=== PATIENT | male | born 1940 | race Caucasian/White ===

== ENCOUNTER 2016-11-08 07:07 | Day surgery (SDC) | payer MEDICARE, BC ==
[~2016-11-08] VITALS: Ht 162.6 cm; Wt 65.8 kg
[~2016-11-08 07:07] MED LIST: ALLO100T PO; ATOR1TAB19 PO; CALC1CAP PO; METO-346 PO; PANT40TA2 PO; QUET1TAB7 PO; TRAD5TAB PO
[2016-11-08] MEDS ORDERED: NS 1,000 ML IV SCH ×2 (07:15→11:15)
[2016-11-08] MEDS ORDERED: ASPI1TAB PO (07:43)
[2016-11-08] MEDS ORDERED: NS 1,000 ML IV ONE (08:00)
[2016-11-08] MEDS ORDERED: LIDOCAINE 1% SDV INJ 30 ML VIAL As Ordered ONE (08:43)
[2016-11-08] MEDS ORDERED: BUPIVACAINE HCL 0.5% 30 ML VIAL As Ordered ONE (08:43)
[2016-11-08] MEDS ORDERED: PROPOFOL 500 MG/50 ML VIAL As Ordered ONE (09:47)
[2016-11-08] MEDS ORDERED: fentaNYL 100 MCG/2 ML INJECTION (J3010) As Ordered ONE (09:47)
[2016-11-08] MEDS ORDERED: MIDAZOLAM INJ 2 MG/2 ML VIAL (J2250) As Ordered ONE (09:47)
[2016-11-08] MEDS ORDERED: ePHEDrine SULFATE 25 MG/5 ML(5MG/ML) SYRINGE As Ordered ONE (09:47)
[2016-11-08] MEDS ORDERED: PHENYLephrine HCL 500 MCG/5 ML (100MCG/ML) SYRINGE (J2370) As Ordered ONE (09:47)
[2016-11-08] MEDS ORDERED: HEPARIN SOD (PORCINE) 5000 UNITS/ML VIAL As Ordered ONE ×2 (10:11→10:40)
[2016-11-08] MEDS ORDERED: ONDANSETRON 4MG/2ML VIAL (J2405) IV PRN (11:15)
[2016-11-08] MEDS ORDERED: PERCOCET 5MG/325MG TAB PO PRN (11:15)
[2016-11-08] MEDS ORDERED: PERCOCET 5MG/325MG TAB As Ordered ONE (11:15)
[2016-11-08 11:50] VITALS: BP 165/72
--- NOTE | 2016-11-10 12:01 | ROOPDOC ---
[facility] Report Of Operation Report of Operation DATE OF PROCEDURE: 11/08/16 PREOPERATIVE DIAGNOSES: End-stage renal disease. POSTOPERATIVE DIAGNOSES: End-stage renal disease. PROCEDURE: Left brachial artery to brachial vein looped forearm arterial venous graft insertion. SURGEON: Dr. Andrea Uribe MD BASKETBALL COMMENTATOR: None INDICATION: Patient is a 76-year-old male with end-stage renal disease who currently dialyzes through 2 separate catheters inserted into the right internal jugular vein. Patient was evaluated and noted to have poor cephalic vein in the wrist and upper arm region. Patient will undergo exploration of the cephalic vein in the wrist and antecubital fossa region with possible arterial venous fistula formation or possible arteriovenous graft insertion. Risks, benefits and alternative treatment options were discussed with the patient. Benefits included but were not limited to presence of a functioning arteriovenous graft allowing removal of the tunnelled central venous catheter currently being used for hemodialysis access. Alternative treatment options included but were not limited to no intervention. Risks included but were not limited to infection, bleeding, failure of arterial venous access to maintain patency with thrombosis, failure of arterial venous access to function appropriately requiring secondary intervention, steal syndrome, possible need for further open surgical intervention, cerebrovascular accident, myocardial infarction, pulmonary embolus, DVT, loss of limb, loss of life and poor outcome. Patient's questions were answered. Patient voices understanding of these risks, benefits and alternative treatment options. The patient accepts these risks and consents to proceed with a left arm arteriovenous fistula creation possible arteriovenous graft formation. ANESTHESIA: Local Mac. ESTIMATED BLOOD LOSS: Approximately 25 mL. IV FLUIDS: 200 cc of crystalloid HEPARIN: 6000 units PROTAMINE: None COMPLICATIONS: None. DRAINS: None SPECIMENS: None IMPLANTS: 6 mm Accuseal PTFE graft from the left brachial artery to the left brachial vein. The arterial limb of the graft is lateral and the venous limb of the graft is medial. PROCEDURE: Patient was taken to the operating room, placed supine on the operating room table and prepped and draped in a standard surgical fashion. A time out was then completed with myself and all the staff in the room with confirmation of the correct procedure, patient, and laterality. A tourniquet was applied to the left upper extremity. There was cephalic vein at the wrist which was easily visible to the mid forearm but at this point the cephalic vein was unable to be identified into the upper forearm and upper arm. There was no cephalic vein identified at the antecubital fossa with a tourniquet and place. The tourniquet remained in place. The skin overlying the antecubital fossa in the left upper extremity was then anesthetized with 1% lidocaine mixed with 0.5 % Marcaine. The incision was then made transversely at the antecubital fossa. The cephalic vein at the antecubital fossa was identified and noted to be sclerotic and thrombosed. There was a good brachial vein noted upon dissection of the brachial artery. The brachial vein was then dissected free and encircled proximally and distally with a vessel loop. The brachial artery was then sharply dissected free and encircled with a vessel loops. A 6 mm Accuseal PTFE graft was then tunneled to create a looped graft in the forearm on the left upper extremity. Prior to clamping the brachial l artery the patient received heparin for systemic anti-coagulation. The graft was then anastomosed to the brachial vein in an end to side fashion using 6-0 Prolene suture in a running continuous fashion.. The graft was then flushed after which the arterial limb was anastomosed to the brachial artery in an end to side fashion using 6-0 Prolene suture. Hemostasis was obtained and the incision was closed using 3-0 Monocryl suture in a running subcuticular fashion to approximate the skin. All instrument, sponge and needle counts were correct at the end of the case. There was good flow noted in the arterial venous graft. The left hand was well perfused after creation of the looped forearm left brachial artery to left brachial vein arteriovenous graft. Dr. Uribe was present for and directed the entire case. There were no complications. Patient was transferred to the recovery room awake, alert, extubated and in stable condition. There were 2+ radial and ulnar pulses in the left upper extremity at the completion of the graft insertion. Kaleb Uribe MD Nov 10, 2016 12:01
== END 2016-11-08 12:00 | disposition home or self-care (01) ==
LOC: M SDC 07:07
PROVIDERS: ATTEND Surgery Vascular Surgery
DX: N18.6 End stage renal disease (principal); I25.2 Old myocardial infarction; I12.0 Hypertensive chronic kidney disease with stage 5 chronic kidney disease or end stage renal disease; E78.00 Pure hypercholesterolemia, unspecified; E11.9 Type 2 diabetes mellitus without complications; M10.9 Gout, unspecified; F03.90 Unspecified dementia, unspecified severity, without behavioral disturbance, psychotic disturbance, mood disturbance, and anxiety; G47.30 Sleep apnea, unspecified; F41.9 Anxiety disorder, unspecified; F32.9 Major depressive disorder, single episode, unspecified; Z79.899 Other long term (current) drug therapy; Z85.038 Personal history of other malignant neoplasm of large intestine; Z92.21 Personal history of antineoplastic chemotherapy; Z92.3 Personal history of irradiation; Z96.1 Presence of intraocular lens; Z99.2 Dependence on renal dialysis
CPT/HCPCS: 36415; 36830; 84132; C1768; J2250; J2370; J3010

== ENCOUNTER → 2016-11-25 | Outpatient (CLI) | payer MEDICARE, BC ==
[~2016-11-25] MED LIST changes: +ASPI1TAB PO; +ISOVUE-300 61% 50ML VIAL (Q9967) As Ordered ONE; +MIDAZOLAM INJ 2 MG/2 ML VIAL (J2250) As Ordered ONE; +fentaNYL 100 MCG/2 ML INJECTION (J3010) As Ordered ONE
--- NOTE | 2016-11-26 11:16 | REPKIM ---
DATE OF PROCEDURE: 11/25/2016 PREPROCEDURE DIAGNOSES: Endstage renal disease, dysfunctional left looped forearm arteriovenous graft from the left brachial artery to the left brachial vein. POSTPROCEDURE DIAGNOSES: Endstage renal disease, dysfunctional left looped forearm arteriovenous graft from the left brachial artery to the left brachial vein. PROCEDURE: Left looped forearm arteriovenous graft fistulogram. Retrograde left brachial artery angiogram. Left branchial vein angioplasty with 6 x 40 mm balloon. Left brachial artery to brachial vein arteriovenous graft angioplasty with 6 x 40 mm balloon. SURGEON: Dr. Iqra Uribe. HEAD MEN'S GOLF COACH: Vilma Nichols. ANESTHESIA: Local with 2 mL of 2% lidocaine. FLUORO TIME: 0.6 minutes. CONTRAST: 3 mL heparin. COMPLICATION: None. DRAINS: None. SPECIMENS: None. IMPLANTS: None. INDICATION: Patient is as 76-year-old male with endstage renal disease who dialyzes through two right internal jugular vein catheters and underwent creation of a right brachial artery to brachial vein looped forearm arteriovenous graft, which is now pulsatile and there is concern for venous outflow obstruction with loss of graft. The patient will undergo a fistulogram with possible angioplasty and/or stent. Risks, benefits and alternative treatment options were discussed with the patient. Benefits including but were not limited to a functioning arteriovenous graft with subsequent removal of the catheters in his right internal jugular vein. Alternative treatment options included but were not limited to no intervention. Risks included but here not limited to infection, bleeding, steel syndrome and possible need for open surgical intervention, loss of arteriovenous access, cerebral vascular accident, myocardial infarction, pulmonary embolus, deep venous thrombosis, loss of limb, loss of life and poor outcome. The patient's questions were answered. The patient voices understanding of these risks, benefits and alternative treatment options. The patient agrees to proceed with a left looped forearm arteriovenous graft fistulogram and accepts the associated risks. DESCRIPTION OF PROCEDURE: The patient was taken to the angiography suite and placed supine on the angiography room table and the left upper extremity was then prepped and draped in a standard surgical fashion A time-out was then conducted by myself and all the team members within the room confirming the correct patient, procedure and laterality. The left looped forearm arteriovenous graft was then cannulated with a micropuncture needle after anesthetizing the overlying skin with 2% lidocaine. The micropuncture wire was advanced through the micropuncture needle, which was upsized to a micropuncture sheath. A fistulogram was performed through the sheath showing the graft to be widely patent to the branchial vein. There was an area of stenosis in the brachial vein at the anastomosis which was approximately 70%. The remainder of the brachial vein was patent into the central venous system with no central venous stenosis noted. The brachial vein and graft anastomosis was then angioplastied with a 6 x 40 mm balloon. During inflation of the balloon, a retrograde brachial artery angiogram was performed showing the remainder of the graft to be patent and the brachial artery with good flow in the brachial artery proximal distal to the artery to graft anastomosis. A completion fistulogram was performed showing resolution of the stenosis with good flow through the graft into the brachial vein and centrally. Catheters and wires were removed. The was removed and manual compression applied to the puncture site for hemostasis. Dressings were then applied. The patient tolerated the procedure well. All instruments, sponge and needle counts were correct at the end of the case. There were no complications. Dr. Uribe was present for and directed the entire case. The patient was transferred to the holding area and subsequently discharged in stable condition. There was a good thrill in the graft at the completion of the intervention and the graft is stable for use for hemodialysis access. RADIOLOGIC SUPERVISION INTERPRETATION: The initial fistulogram showed the graft to be widely patent to the brachial vein where there was stenosis at the brachial vein to graft anastomosis, which was approximately 70%. The remainder of the brachial vein was patent into the upper arm and central venous system with no central venous stenosis or occlusion noted. The brachial vein to graft anastomosis was angioplastied with a 6 x 40 balloon during which time an retrograde brachial artery angiogram was performed showing the remainder of the graft to be patent in the brachial artery with good flow in the brachial artery proximal and distal to the graft and brachial artery anastomosis. A completion fistulogram showed resolution of the stenosis a the anastomosis with good flow through the graft into the brachial vein and centrally. CONCLUSION: The patient underwent successful angioplasty of the graft to brachial vein anastomosis with resolution of the stenosis and presybeterian of a thrill to the arteriovenous graft. The graft is stable for use for dialysis access.
== END | disposition home or self-care (01) ==
LOC: M IRPRO 12:50
PROVIDERS: ATTEND Surgery Vascular Surgery
DX: T82.858A Stenosis of other vascular prosthetic devices, implants and grafts, initial encounter (principal); N18.6 End stage renal disease
CPT/HCPCS: 36902; C1725; C1769; C1894; Q9967

== ENCOUNTER → 2016-12-06 | Outpatient (CLI) | payer MEDICARE, BC ==
[~2016-12-06] MED LIST changes: +ALTEPLASE 2 MG/2 ML VIAL (J2997 PER 1MG) As Ordered ONE; +HEPARIN 1,000 UNITS/ML 10ML VIAL (FOR RADIOLOGY& DIALYSIS ONLY) As Ordered ONE; +LIDOCAINE 2% MDV 20 ML VIAL As Ordered ONE
--- NOTE | 2016-12-18 12:47 | REPKIM ---
DATE OF PROCEDURE: 12/06/2016 PREPROCEDURE DIAGNOSES: Endstage renal disease. Thrombosed left looped forearm arteriovenous graft. POSTPROCEDURE DIAGNOSES: Endstage renal disease. Thrombosed left looped forearm arteriovenous graft. PROCEDURE: Installation of thrombolytic with 6 mm of TPA and 5000 units of heparin into thrombosed left looped forearm brachial artery to brachial vein arteriovenous graft. Left looped forearm arteriovenous fistulogram. Selective left brachial artery catheter placement with angiogram and runoff. Placement of two sheaths with two cannulations of the looped forearm left brachial artery to brachial vein arteriovenous graft. Left brachial artery angioplasty with 6 x 100 balloon, left brachial artery to arteriovenous graft anastomosis. Angioplasty with 6 x 100 balloon left looped forearm arteriovenous graft angioplasty with 7 x 150 and 8 x 200 balloon, left brachial vein angioplasty with 7 x 150 and 8 x 200 balloon, left axillary vein angioplasty with 7 x 150 and 8 x 200 balloon, left subclavian vein angioplasty with 7 x 150 and 8 x 200 balloon. Mechanical thrombectomy with 7 and 8 mm balloons of thrombosed left brachial artery to brachial vein looped forearm arteriovenous graft. SURGEON: Dr. Iqra Uribe EMERGENCY DEPT TECH: Jaimie Ortega ANESTHESIA: Local with sedation with 2 mg of Versed, 100 mcg fentanyl and 4.5 mL of 2% lidocaine. Sedation time was from 12:15 pm to 1:15 pm with the sedation administered by myself and the cardiopulmonary monitoring performed by the RN in the room. The procedure was performed under my direct supervision and direction and I was present for the entire case. CONTRAST: 8 mL. COMPLICATIONS: None. DRAINS: None. SPECIMENS: None. IMPLANTS: None. INDICATION: The is a 76-year-old male who underwent placement of a left brachial vein arteriovenous graft, which is looped in the forearm and subsequently had thrombosis after initial use of the graft. The patient will undergo thrombolysis with possible angioplasty and/or stent. Risks, benefits and alternative treatment options were discussed with the patient. DESCRIPTION OF PROCEDURE: The graft was pre-injected with 6 mg of TPA and 5000 units of heparin through a butterfly needle after which the patient was taken to the angiography suite, placed supine, and the left upper extremity was prepped and draped in a standard surgical fashion. Two sheath were placed in the graft. Mechanical thrombectomy was performed with 7 and 8 mm balloons. Fistulogram was performed showing extensive long segment stenosis in the brachial vein, axillary vein and extending into the subclavian vein as well as the graft to brachial vein anastomosis. There was also residual thrombus at the left brachial artery to arteriovenous graft anastomosis on selected brachial artery catheter angiogram. The left brachial artery and arteriovenous graft were angioplastied with a 6 x 100 balloon, the left brachial, vein, axillary vein, subclavian vein and arteriovenous graft were angioplastied with 7 x 150 and 8 x 200 balloon with mechanical thrombectomy performed with the 7 and 8 mm balloons. There was good flow through the graft and into the brachial vein, axillary vein, subclavian vein and centrally with no residual stenosis noted on followup fistulogram. Catheters and wires were removed. The sheaths were removed and #2-0 Prolene sutures placed at the puncture sites for hemostasis. Dressing were then applied. The patient tolerated the procedure well. All instrument, sponge and needle counts were correct at the end of the case. There were no complications. Dr. Uribe was present for and directed the entire case. The patient was transferred to the holding area and subsequently discharged in stable condition. The graft is patent and stable for use for hemodialysis access. RADIOLOGIC SUPERVISION INTERPRETATION: The initial fistulogram showed the graft to have residual thrombus and the brachial vein with long-segment stenosis in the brachial vein, axillary vein extending into the subclavian with no central venous stenosis or occlusion noted. The graft underwent mechanical thrombectomy as well as chemical thrombolysis with insulation of thrombolysis with insulation of thrombolytic with 6 mg of TPA and 5000 units of heparin. The brachial artery to graft anastomosis was angioplastied with a 6 x 100 balloon. The brachial vein, axillary vein and subclavian vein were angioplastied with a 7 x 150 and 8 x 200 balloon.
== END | disposition home or self-care (01) ==
LOC: M IRPRO 09:28
PROVIDERS: ATTEND Surgery Vascular Surgery
DX: T82.868A Thrombosis due to vascular prosthetic devices, implants and grafts, initial encounter (principal); I87.1 Compression of vein; I74.2 Embolism and thrombosis of arteries of the upper extremities; N18.6 End stage renal disease
CPT/HCPCS: 36215; 36905; 36907; 37246; 75710; 99152; 99153; C1725; C1769; C1887; C1894; J2250; J2997; J3010; Q9967

== ENCOUNTER → 2016-12-17 | Outpatient (CLI) | payer MEDICARE, BC ==
[~2016-12-17] MED LIST changes: +ACETAMINOPHEN 325 MG TAB As Ordered ONE; +ALTEPLASE 2 MG/2 ML VIAL (J2997 PER 1MG) IV ONE; +HEPARIN SOD (PORCINE) 5000 UNITS/ML VIAL IV ONE; -LIDOCAINE 2% MDV 20 ML VIAL As Ordered ONE; +MIDAZOLAM INJ 2 MG/2 ML VIAL (J2250) IV ONE; +fentaNYL 100 MCG/2 ML INJECTION (J3010) IV ONE
--- NOTE | 2017-01-16 12:21 | REPIR ---
DATE OF PROCEDURE: 12/17/2016 PREOPERATIVE DIAGNOSES: End-stage renal disease, thrombosed left brachial artery to brachial vein looped forearm arteriovenous graft. POSTOPERATIVE DIAGNOSES: End-stage renal disease, thrombosed left brachial artery to brachial vein looped forearm arteriovenous graft. PROCEDURE: Instillation of thrombolytic with tissue plasminogen activator (tPA) and heparin, left arm dialysis graft access times two, fistulogram, angioplasty of the graft, the brachial vein, the axillary vein, and the subclavian vein with 8 x 200 and 6 x 40 mm balloons, thrombectomy of the thrombosed graft, selective left brachial artery catheter placement with angiogram and runoff. SURGEON: Dr. Kaleb Uribe MARKING MACHINE OPERATOR: Jaimie Sehti and Vilma Trejo. ANESTHESIA: Local with sedation with 6 mg of Versed and 250 mcg of fentanyl and 7 mL of lidocaine. COMPLICATIONS: None. DRAINS: None. SPECIMENS: None. FLUOROSCOPY TIME: 2.222 minutes. CONTRAST: 12 mL. SEDATION TIME: From 1330 hours to 1600 hours. DESCRIPTION OF PROCEDURE: The patient was taken to the angiography suite, placed supine on the angiography room table, and the left upper extremity was prepped and draped in a standard surgical fashion. The graft was cannulated after anesthetizing the overlying skin with 2% lidocaine. Prior to any procedure, a time-out was performed confirming the correct patient, procedure, and laterality. The graft was cannulated times two, one directed toward the venous outflow and one directed toward the arterial inflow. Catheters and wires were passed through the graft into the artery and the vein, after which mechanical thrombectomy was performed and a fistulogram performed showing stenosis in the brachial vein and along the course of the brachial vein extending into the axillary vein and into the subclavian vein. The subclavian vein, axillary vein, and brachial vein were angioplastied with an 8 x 200 balloon, and the graft was angioplastied with an 8 x 200 balloon. The arterial anastomosis was angioplastied with the 6 x 40 balloon. A completion angiogram showed resolution of the thrombosis with good flow through the graft. Catheters and wires were removed. Sutures were placed at the puncture site for hemostasis. Dressings were then applied. Patient tolerated the procedure well. All instrument, sponge, and needle counts were correct at the end of the case. There were no complications. Dr. Uribe was present for and directed the entire case. Patient was transferred to the holding area and subsequently discharged in stable condition. The graft is suitable for use for access for dialysis. RADIOLOGICAL SUPERVISION INTERPRETATION: The initial fistulogram showed stenosis in the brachial vein, axillary vein, and subclavian vein, which were all angioplastied with an 8 x 200 balloon. There was also residual thrombus at the arterial to graft anastomosis, which was angioplastied with an 8 x 40 balloon. A completion fistulogram showed resolution of the stenosis and thrombosis with good flow through the graft.
== END | disposition home or self-care (01) ==
LOC: M IRPRO 11:43
PROVIDERS: ATTEND Surgery Vascular Surgery
DX: T82.868A Thrombosis due to vascular prosthetic devices, implants and grafts, initial encounter (principal); N18.6 End stage renal disease
CPT/HCPCS: 36905; 36907; C1725; C1757; C1769; C1876; C1887; C1894; J2250; J2997; J3010; Q9967